=== PATIENT | female | born 1940 | race Caucasian/White ===

== ENCOUNTER → 2017-03-02 | Outpatient (CLI) | payer MEDICARE ==
[~2017-03-02] MED LIST: IOPAMIDOL 370 MG/ML 200 ML INFUS..BTL INJ ONE; MVI; SODIUM CHLORIDE 0.9% 50ML 50 ML ONE
[2017-03-02 11:13] LABS: BLOOD UREA NITROGEN 18 mg/dL (7-26); BUN/CREATININE RATIO 21 (6-25); CREATININE, SERUM 0.86 mg/dL (0.57-1.11); EST GLOMERULAR FILTRATION RATE > 60 ML/MIN (60-)
--- NOTE | 2017-03-02 15:39 | Diagnostic Imaging Report ---
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 COMPARISON: CT chest on 08/23/2013 TECHNIQUE: Multi-detector CT technology was employed. CTA Gated axial imaging of the chest was performed after the administration of IV contrast. IV CONTRAST: 100 mL of Isovue-370 ORAL CONTRAST: None COMPLICATIONS: None RADIATION DOSE: Total DLP: 533.2 mGy*cm Estimated effective dose: (DLP x 0.015 x size factor) mSv CTDIvol has been reviewed. It is below the limits set by the Radiation Protocol Committee (RPC). For optimization of anatomic evaluation, multiplanar reconstruction, maximum intensity projections, and advanced 3-D off-line postprocessing were performed on a dedicated stand-alone workstation under the direct supervision of the interpreting physician. FINDINGS: Potential study limitations: None. LINES/ TUBES: None. VASCULAR WITH ADVANCED 3-D OFF-LINE POSTPROCESSING: Aortic valve morphology is trileaflet and contains mild calcifications. The aortic root is normal in caliber. Status post ascending aorta surgical graft placement for repair of an aneurysm. Mild soft tissue thickening surrounding the graft measuring up to 5 mm without surrounding fat stranding or fluid collections may relate to the type of graft or postoperative change. Maximum thickness is 5 mm. Otherwise, the graft is intact. 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 The descending thoracic aorta is tortuous and mildly ectatic. There is no acute aortic pathology, such as dissection, intramural hematoma, or contained rupture. Aortic plaques: Mild atherosclerotic calcification throughout the thoracic aorta. The arch vessel branching pattern is conventional. Diffuse ectasia of the visualized arch branch vessels. The proximal innominate artery measuring 1.6 cm in diameter. The proximal left common carotid artery measures 0.7 cm in diameter. The left subclavian artery measure 1.2 cm in the proximal segment. All of the arch branch vessels appear widely patent in their proximal portions. Staple Laster dimensions of the thoracic aorta are as follows: 2.6 cm at the aortic annulus 3.4 x 3.2 cm at the sinuses of Valsalva (the sinotubular junction is preserved) 3.0 cm at the mid ascending aorta 3.0 cm at the distal ascending aorta 4.4 cm at the proximal and 3.2 cm at the mid transverse arch 3.0 cm at the proximal descending thoracic aorta 2.8 cm at the diaphragmatic hiatus. LUNGS AND AIRWAYS: Lungs are clear. Airways are patent. PLEURA: The pleural spaces are clear. HEART AND MEDIASTINUM: The thyroid gland is normal. No mediastinal, hilar or axillary lymphadenopathy. The main pulmonary artery is normal in size. Moderate hiatal hernia, unchanged. The cardiac chambers demonstrate normal atrioventricular and ventriculoarterial concordance, and systemic and pulmonary venous return. The cardiac chambers are normal in size. The coronary arteries have normal origins and courses. There are no distinct coronary calcifications identified, though this study was not optimized for coronary artery evaluation. There is no pericardial effusion. LIMITED ABDOMEN: Multiple large peripherally calcified gallstones. Low-attenuation of the liver parenchyma may represent hepatic steatosis. BONES/SOFT TISSUES: Status post median sternotomy. Mild nonunion of the sternal bones. Small fat-containing epigastric hernia. IMPRESSION: Status post ascending aorta graft placement for repair of an aneurysm. Mild soft tissue thickening surrounding the graft may be postoperative. Otherwise, graft is unremarkable. 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 Recommend follow up in 6 months- 1 year. Signed by: Dr. Mora Carmona M.D. on 03/02/2017 3:36 PM
== END ==
LOC: CT 10:20
PROVIDERS: ATTEND Internal Medicine Interventional Cardiology
DX: I71.2 Thoracic aortic aneurysm, without rupture (principal)
CPT/HCPCS: 36415; 71275; 82565; 84520; Q9967

== ENCOUNTER → 2017-06-30 | Outpatient (CLI) | payer MEDICARE ==
[~2017-06-30] MED LIST changes: +SODIUM CHLORIDE 0.9% 100 ML ONE; -SODIUM CHLORIDE 0.9% 50ML 50 ML ONE
[2017-06-30 09:57] LABS: BLOOD UREA NITROGEN 17 mg/dL (7-26); BUN/CREATININE RATIO 22 (6-25); CHOL/HDL RATIO 3.4 (3.0-3.6); CHOLESTEROL 188 MD/DL (0-199); CREATININE, SERUM 0.79 mg/dL (0.57-1.11); EST GLOMERULAR FILTRATION RATE > 60 ML/MIN (60-); HDL CHOLESTEROL 55 MG/DL (40-60); LDL CHOLESTEROL 117 MG/DL (60-130); TRIGLYCERIDES 79 MG/DL (0-149)
--- NOTE | 2017-07-03 10:54 | Diagnostic Imaging Report ---
Examination: Cervical and Intracranial CT Angiogram with Contrast History: Transient ischemia; history of strokes; history of aortic arch aneurysm. Comparison studies: None Technique: Axial images were obtained from the thoracic inlet. Coronal and sagittal images reconstructed from the axial data. Intravenous contrast: 100 mL of Isovue-370. Degree of stenosis at the carotid bulbs, if present, will be calculated using NASCET criteria where the smallest diameter at the location of stenosis is compared to the diameter of the more distal non-diseased vessel lumen. Findings: CTA neck: Aortic arch and major vessels: Patent. Please refer to concurrent chest CTA for description of aortic arch aneurysm. The right vertebral artery originates from the innominate/brachiocephalic. Common carotid arteries: Patent. Retropharyngeal course on the left mid to distal segment. Cervical carotid bifurcations: Right: Patent. Left :Patent despite soft plaque. Internal carotid arteries: Right: Patent. Left: Patent. Vertebral arteries: Patent. CTA head: Internal carotid arteries: Patent. Anterior cerebral arteries: Patent A1 and A2 segments. Middle cerebral arteries: Patent M1 and M2 segments. Posterior cerebral arteries: Patent P1, P2 and P3 segments. Vertebro-basilar system: Patent. Anatomical variants: Anterior communicating artery :Present Posterior communicating arteries: Not visualized. Vertebral arteries: Codominant. IMPRESSION: 1. Nonstenotic soft plaque at the left carotid bifurcation. 2. No high-grade stenosis or occlusion or vascular malformation. Signed by: Dr. Sabra Oliveira M.D. on 07/03/2017 10:51 AM
== END ==
LOC: CT 08:28
PROVIDERS: ATTEND Student in an Organized Health Care Education/Training Program
DX: R29.818 Other symptoms and signs involving the nervous system (principal)
CPT/HCPCS: 36415; 70496; 70498; 80061; 82565; 83036; 84520; J7050; Q9967

== ENCOUNTER → 2021-04-12 | Outpatient (CLI) | payer MEDICARE ==
[2021-04-12 14:47] LABS: CREATININE, SERUM 0.82 mg/dL (0.57-1.11)
== END ==
LOC: CT 13:38
PROVIDERS: ATTEND Internal Medicine Interventional Cardiology
DX: R07.9 Chest pain, unspecified (principal); I48.91 Unspecified atrial fibrillation; I25.10 Atherosclerotic heart disease of native coronary artery without angina pectoris; I28.8 Other diseases of pulmonary vessels
CPT/HCPCS: 36415; 71275; 82565; 84520; J7050; Q9967